=== PATIENT | male | born 1990 | race Hispanic/Latino ===

== ENCOUNTER 2018-05-27 05:10 | Emergency (ER) | payer OTHER ==
[2018-05-27] MEDS: NORCO, ANEXSIA 5/325MG TABLET (HYDROcodone/ACETAMINOPHEN) PO (06:00)
== END 2018-05-27 06:27 | disposition home or self-care (01) ==
LOC: M ED 05:10
DX: K08.89 Other specified disorders of teeth and supporting structures (principal)
CPT/HCPCS: 99282